=== PATIENT | female | born 1950 | race Caucasian/White ===

== ENCOUNTER 2021-12-26 17:04 | Inpatient (IN) ==
[2021-12-26] MEDS ORDERED: 0.9 % Sodium Chloride 1,000 ML IVC ONE (18:13)
[2021-12-26 18:30] LABS: Basophils % 0.1 %; Eosinophils % 0.4 %; Hemoglobin 10.6 g/dL (11.5-15.4); Immature Granulocytes % 0.5 % (0-4); Lymphocytes # 0.9 K/mcL (0.6-4.6); Lymphocytes % 11.4 %; Mean Corpuscular HGB Conc 31.2 g/dL (31.6-35.5); Mean Corpuscular Hemoglobin 30.2 pg (28.0-33.3); Mean Corpuscular Volume 96.9 fL (83.0-100.0); Mean Platelet Volume 10.6 fL (9.4-12.4); Monocytes # 0.7 K/mcL (0.0-1.3); Monocytes % 8.9 %; Platelet Count 119 K/mcL (140-400); Red Blood Count 3.51 M/mcL (3.82-4.97); Red Cell Distribution Width 13.9 % (11.5-14.5); Segmented Neutrophils % 78.7 %
[2021-12-26 18:31] LABS: White Blood Count 7.6 K/mcL (4.3-11.1)
[2021-12-26 18:47] LABS: Bilirubin,Urine Negative (Negative); Blood,Urine Negative (Negative); Clarity,Urine Clear (Clear); Color,Urine Light-Yellow (Yellow); Glucose,Urine (UA) Normal (Normal); Ketones,Urine Negative (Negative); Leukocyte Esterase,Urine Moderate (Negative); Mucus,Urine Few per lpf (None-Few); Nitrite,Urine Negative (Negative); Protein,Urine 50 mg/dL (Neg-Trace); Specific Gravity,Urine 1.017 (1.010-1.025); Squamous Epithelial Cell,Urine Few per hpf (None-Few); Urobilinogen,Urine Normal (Normal)
[2021-12-26 18:50] LABS: Albumin 3.9 g/dL (3.5-5.7); Bilirubin,Total 1.3 mg/dL (0.3-1.0); Calcium 9.5 mg/dL (8.6-10.3); Globulin 3.9 g/dL (2.4-3.5); Magnesium 1.7 mg/dL (1.6-2.6); Phosphorous 3.1 mg/dL (2.7-4.5); Potassium 4.6 mEq/L (3.5-5.1); Total Protein 7.8 g/dL (6.4-8.9); Troponin I 0.03 ng/mL (< 0.04)
[2021-12-26 19:03] LABS: Thyroid Stimulating Hormone 1.241 mcIU/mL (0.340-5.600)
[2021-12-26] MEDS ORDERED: Furosemide 40 MG/4 ML VIAL IVP ONE (19:10)
[2021-12-26] MEDS ORDERED: Naloxone 0.4 MG/ML INJ IVP PRN (20:13)
[2021-12-26] MEDS ORDERED: Dextrose Gel 15 GM/37.5 ML TUBE PO PRN ×2 (20:16)
[2021-12-26] MEDS ORDERED: *HR* Dextrose 50 % in Water (Syg) 50 ML SYRINGE IVP PRN (20:16)
[2021-12-26] MEDS ORDERED: D5% in Water 1,000 ML IVC PRN (20:16)
[2021-12-26] MEDS ORDERED: Perflutren Lipid Microsphere 1.3 ML in 0.9 % Sodium Chloride 8.7 ML IVP PRN (20:21)
[2021-12-26 21:18] LABS: Influenza A PCR Negative (Negative); Influenza B PCR Negative (Negative); Resp. Syncytial Virus PCR Negative (Negative)
[2021-12-26 21:20] LABS: SARS-CoV-2 by PCR (In House) Negative (Negative)
[2021-12-26] MEDS: carvediloL 6.25 MG TABLET PO SCH (21:23)
[2021-12-26] MEDS: Insulin LISPRO 300 UNITS/3 ML VIAL SUBQ SCH (21:39)
[2021-12-26] MEDS: Melatonin 3 MG TABLET PO PRN (21:46)
[2021-12-27 05:17] LABS: Basophils % 0.2 %; Mean Platelet Volume 10.7 fL (9.4-12.4); Red Cell Distribution Width 13.8 % (11.5-14.5)
[2021-12-27 05:19] LABS: Eosinophils % 0.4 %; Hematocrit 29.3 % (35.3-44.9); Hemoglobin 9.2 g/dL (11.5-15.4); Immature Granulocytes % 0.9 % (0-4); Immature Platelets 3.4 % (1.1-6.1); Lymphocytes # 0.8 K/mcL (0.6-4.6); Lymphocytes % 14.8 %; Mean Corpuscular HGB Conc 31.4 g/dL (31.6-35.5); Mean Corpuscular Hemoglobin 30.3 pg (28.0-33.3); Mean Corpuscular Volume 96.4 fL (83.0-100.0); Monocytes # 0.5 K/mcL (0.0-1.3); Monocytes % 9.5 %; Neutrophils # 4.1 K/mcL (1.6-8.9); Platelet Count 91 K/mcL (140-400); Red Blood Count 3.04 M/mcL (3.82-4.97); Segmented Neutrophils % 74.2 %; White Blood Count 5.5 K/mcL (4.3-11.1)
[2021-12-27 05:35] LABS: Albumin 3.1 g/dL (3.5-5.7); Calcium 8.8 mg/dL (8.6-10.3); Globulin 3.1 g/dL (2.4-3.5); Magnesium 1.7 mg/dL (1.6-2.6); Phosphorous 4.1 mg/dL (2.7-4.5); Potassium 4.5 mEq/L (3.5-5.1); Total Protein 6.2 g/dL (6.4-8.9)
[2021-12-27] MEDS ORDERED: Fluticasone Propionate Nasal 50 MCG/SPRAY BOTTLE NS PRN (08:11)
[2021-12-27] MEDS ORDERED: Furosemide 40 MG/4 ML VIAL IVP SCH (09:00)
[2021-12-27] MEDS: Insulin LISPRO 300 UNITS/3 ML VIAL SUBQ SCH ×6 (09:21→21:44)
[2021-12-27] MEDS: Albumin 25% 25gram/100mL 25 GM/100 ML IV.SOLN IVPB SCH ×3 (09:22→23:38)
[2021-12-27] MEDS: Famotidine 20 MG TABLET PO SCH ×2 (09:22→21:44)
[2021-12-27] MEDS: Aspirin Enteric Coated 81 MG Tablet PO SCH (09:22)
[2021-12-27] MEDS: carvediloL 6.25 MG TABLET PO SCH (09:33)
[2021-12-27] MEDS: Budesonide/Formoterol 80/4.5 1 PUFF INH IH SCH ×2 (10:20→20:50)
[2021-12-27] MEDS ORDERED: Ipratropium/Albuterol Neb 3 ML ONE (13:39)
[2021-12-27] MEDS: Ipratropium/Albuterol Neb 3 ML IH SCH ×2 (13:50→20:50)
[2021-12-27] MEDS ORDERED: Furosemide 20 MG/2 ML VIAL IVP ONE (15:04)
[2021-12-27 16:19] LABS: ABG Base Excess 3 mEq/L (-2 to 3); ABG HCO3 28 mEq/L (21-27); ABG Oxygen Saturation 97 % (95-98); ABG PCO2 45 mmHg (35-45); ABG PO2 97 mmHg (85-104); ABG TCO2 29 mEq/L (20-26)
[2021-12-27] MEDS: *HR* Heparin 5,000 UNIT/ML VIAL SQ SCH (16:47)
[2021-12-27] MEDS: Insulin DETEMIR 100 UNIT/ML X5UNITS SUBQ SCH (21:44)
[2021-12-27] MEDS ORDERED: Acetaminophen 325 MG TABLET PO ONE (23:37)
[2021-12-27] MEDS: Melatonin 3 MG TABLET PO PRN (23:38)
[2021-12-28] MEDS: Ipratropium/Albuterol Neb 3 ML IH SCH ×3 (00:07→07:19)
[2021-12-28] MEDS: *HR* Heparin 5,000 UNIT/ML VIAL SQ SCH ×2 (05:21→16:49)
[2021-12-28 06:42] LABS: Calcium 9.4 mg/dL (8.6-10.3); Magnesium 1.6 mg/dL (1.6-2.6); Phosphorous 3.3 mg/dL (2.7-4.5); Potassium 4.2 mEq/L (3.5-5.1)
[2021-12-28] MEDS: Budesonide/Formoterol 80/4.5 1 PUFF INH IH SCH ×2 (07:20→20:06)
[2021-12-28] MEDS ORDERED: Furosemide 40 MG/4 ML VIAL IVP SCH (08:00)
[2021-12-28] MEDS: Insulin LISPRO 300 UNITS/3 ML VIAL SUBQ SCH ×7 (08:09→20:27)
[2021-12-28] MEDS: Aspirin Enteric Coated 81 MG Tablet PO SCH (10:04)
[2021-12-28] MEDS: Famotidine 20 MG TABLET PO SCH ×2 (10:05→21:14)
[2021-12-28] MEDS: Albumin 25% 25gram/100mL 25 GM/100 ML IV.SOLN IVPB SCH ×2 (16:49→23:50)
[2021-12-28] MEDS: Insulin DETEMIR 100 UNIT/ML X5UNITS SUBQ SCH (20:44)
[2021-12-28] MEDS: Torsemide 20 MG TABLET PO SCH (21:13)
[2021-12-28] MEDS: Melatonin 3 MG TABLET PO PRN (21:14)
[2021-12-29] MEDS ORDERED: Furosemide 20 MG/2 ML VIAL IVP ONE (02:34)
[2021-12-29 03:28] LABS: Basophils % 0.1 %; Eosinophils # 0.1 K/mcL (0.0-0.6); Eosinophils % 1.6 %; Hematocrit 26.6 % (35.3-44.9); Hemoglobin 8.5 g/dL (11.5-15.4); Immature Granulocytes % 0.4 % (0-4); Lymphocytes # 0.9 K/mcL (0.6-4.6); Lymphocytes % 12.6 %; Mean Corpuscular Hemoglobin 30.7 pg (28.0-33.3); Mean Platelet Volume 10.9 fL (9.4-12.4); Monocytes # 0.7 K/mcL (0.0-1.3); Monocytes % 10.3 %; Neutrophils # 5.2 K/mcL (1.6-8.9); Platelet Count 107 K/mcL (140-400); Red Blood Count 2.77 M/mcL (3.82-4.97); Red Cell Distribution Width 13.5 % (11.5-14.5); White Blood Count 6.9 K/mcL (4.3-11.1)
[2021-12-29 03:47] LABS: Calcium 9.7 mg/dL (8.6-10.3); Magnesium 1.7 mg/dL (1.6-2.6); Potassium 4.3 mEq/L (3.5-5.1)
[2021-12-29] MEDS: Ipratropium/Albuterol Neb 3 ML IH PRN ×2 (04:53→08:00)
[2021-12-29] MEDS: *HR* Heparin 5,000 UNIT/ML VIAL SQ SCH ×2 (05:24→17:48)
[2021-12-29] MEDS: Budesonide/Formoterol 80/4.5 1 PUFF INH IH SCH ×2 (08:00→20:14)
[2021-12-29] MEDS: Famotidine 20 MG TABLET PO SCH ×2 (08:16→19:49)
[2021-12-29] MEDS: Aspirin Enteric Coated 81 MG Tablet PO SCH (08:17)
[2021-12-29] MEDS: Albumin 25% 25gram/100mL 25 GM/100 ML IV.SOLN IVPB SCH ×2 (08:19→17:03)
[2021-12-29] MEDS: levoFLOXacin 750 MG/150 ML 750 MG/150 ML BAG IVPB SCH (08:20)
[2021-12-29] MEDS: Insulin LISPRO 300 UNITS/3 ML VIAL SUBQ SCH ×7 (08:20→19:39)
[2021-12-29] MEDS: Torsemide 20 MG TABLET PO SCH ×2 (08:23→19:49)
[2021-12-29] MEDS ORDERED: Chlorothiazide Sodium 500 MG VIAL IVP ONE (11:38)
[2021-12-29 13:37] LABS: Uric Acid 8.8 mg/dL (2.3-7.6)
[2021-12-29] MEDS: Insulin DETEMIR 100 UNIT/ML X5UNITS SUBQ SCH (19:50)
[2021-12-30] MEDS: Albumin 25% 25gram/100mL 25 GM/100 ML IV.SOLN IVPB SCH ×2 (00:19→09:14)
[2021-12-30 04:42] LABS: Sodium, Urine 85.7 mEq/L
[2021-12-30] MEDS: *HR* Heparin 5,000 UNIT/ML VIAL SQ SCH ×2 (05:38→17:26)
[2021-12-30 06:12] LABS: Basophils % 0.2 %; Eosinophils # 0.1 K/mcL (0.0-0.6); Eosinophils % 1.7 %; Hematocrit 26.8 % (35.3-44.9); Hemoglobin 8.4 g/dL (11.5-15.4); Immature Granulocytes % 0.5 % (0-4); Lymphocytes # 0.9 K/mcL (0.6-4.6); Mean Corpuscular HGB Conc 31.3 g/dL (31.6-35.5); Mean Corpuscular Hemoglobin 29.8 pg (28.0-33.3); Monocytes # 0.6 K/mcL (0.0-1.3); Platelet Count 126 K/mcL (140-400); Red Blood Count 2.82 M/mcL (3.82-4.97); Red Cell Distribution Width 13.3 % (11.5-14.5); Segmented Neutrophils % 75.6 %; White Blood Count 6.5 K/mcL (4.3-11.1)
[2021-12-30] MEDS: Budesonide/Formoterol 80/4.5 1 PUFF INH IH SCH ×2 (07:46→20:11)
[2021-12-30] MEDS: Insulin LISPRO 300 UNITS/3 ML VIAL SUBQ SCH ×7 (08:02→21:15)
[2021-12-30 08:38] LABS: Calcium 9.9 mg/dL (8.6-10.3); Magnesium 1.5 mg/dL (1.6-2.6); Phosphorous 2.6 mg/dL (2.7-4.5); Potassium 4.1 mEq/L (3.5-5.1)
[2021-12-30] MEDS: levoFLOXacin 750 MG/150 ML 750 MG/150 ML BAG IVPB SCH (09:12)
[2021-12-30] MEDS: Torsemide 20 MG TABLET PO SCH ×2 (09:13→21:45)
[2021-12-30] MEDS: Famotidine 20 MG TABLET PO SCH ×2 (09:13→21:45)
[2021-12-30] MEDS: Aspirin Enteric Coated 81 MG Tablet PO SCH (09:14)
[2021-12-30] MEDS: Amoxicillin 500 MG CAPSULE PO SCH (15:13)
[2021-12-30] MEDS: Insulin DETEMIR 100 UNIT/ML X5UNITS SUBQ SCH (21:44)
[2021-12-31] MEDS: Amoxicillin 500 MG CAPSULE PO SCH ×2 (00:41→08:12)
[2021-12-31] MEDS: *HR* Heparin 5,000 UNIT/ML VIAL SQ SCH ×2 (05:05→17:34)
[2021-12-31 05:47] LABS: Calcium 9.2 mg/dL (8.6-10.3); Magnesium 1.7 mg/dL (1.6-2.6); Phosphorous 3.4 mg/dL (2.7-4.5); Potassium 3.6 mEq/L (3.5-5.1)
[2021-12-31] MEDS: Insulin LISPRO 300 UNITS/3 ML VIAL SUBQ SCH ×7 (06:58→20:40)
[2021-12-31] MEDS: Budesonide/Formoterol 80/4.5 1 PUFF INH IH SCH ×2 (07:34→20:46)
[2021-12-31] MEDS: Ipratropium/Albuterol Neb 3 ML IH PRN ×2 (07:35→20:45)
[2021-12-31] MEDS: Aspirin Enteric Coated 81 MG Tablet PO SCH (08:12)
[2021-12-31] MEDS: Famotidine 20 MG TABLET PO SCH ×2 (08:12→20:39)
[2021-12-31] MEDS: levoFLOXacin 750 MG/150 ML 750 MG/150 ML BAG IVPB SCH (08:15)
[2022-01-01] MEDS: Insulin DETEMIR 100 UNIT/ML X5UNITS SUBQ SCH ×2 (04:27→20:16)
[2022-01-01] MEDS: *HR* Heparin 5,000 UNIT/ML VIAL SQ SCH ×2 (05:14→17:34)
[2022-01-01 06:59] LABS: Basophils % 0.2 %; Eosinophils # 0.2 K/mcL (0.0-0.6); Eosinophils % 4.6 %; Hematocrit 26.7 % (35.3-44.9); Hemoglobin 8.5 g/dL (11.5-15.4); Immature Granulocytes % 0.4 % (0-4); Lymphocytes # 0.7 K/mcL (0.6-4.6); Lymphocytes % 13.8 %; Mean Corpuscular HGB Conc 31.8 g/dL (31.6-35.5); Mean Corpuscular Hemoglobin 29.8 pg (28.0-33.3); Mean Corpuscular Volume 93.7 fL (83.0-100.0); Mean Platelet Volume 10.5 fL (9.4-12.4); Monocytes # 0.4 K/mcL (0.0-1.3); Monocytes % 8.8 %; Neutrophils # 3.5 K/mcL (1.6-8.9); Platelet Count 142 K/mcL (140-400); Red Blood Count 2.85 M/mcL (3.82-4.97); Red Cell Distribution Width 13.4 % (11.5-14.5); Segmented Neutrophils % 72.2 %; White Blood Count 4.8 K/mcL (4.3-11.1)
[2022-01-01 07:20] LABS: Calcium 9.5 mg/dL (8.6-10.3); Magnesium 1.6 mg/dL (1.6-2.6); Phosphorous 3.8 mg/dL (2.7-4.5); Potassium 4.1 mEq/L (3.5-5.1)
[2022-01-01] MEDS: Insulin LISPRO 300 UNITS/3 ML VIAL SUBQ SCH ×7 (08:40→20:16)
[2022-01-01] MEDS: Famotidine 20 MG TABLET PO SCH ×2 (08:41→20:21)
[2022-01-01] MEDS: Aspirin Enteric Coated 81 MG Tablet PO SCH (08:42)
[2022-01-01] MEDS: Budesonide/Formoterol 80/4.5 1 PUFF INH IH SCH ×2 (10:13→20:42)
[2022-01-01] MEDS: Ipratropium/Albuterol Neb 3 ML IH PRN ×2 (10:13→20:42)
[2022-01-01] MEDS: Albumin 25% 25gram/100mL 25 GM/100 ML IV.SOLN IVPB SCH ×2 (14:45→22:46)
[2022-01-02 01:03] LABS: Basophils % 0.2 %; Eosinophils # 0.2 K/mcL (0.0-0.6); Eosinophils % 3.3 %; Hematocrit 24.3 % (35.3-44.9); Hemoglobin 7.7 g/dL (11.5-15.4); Immature Granulocytes % 0.4 % (0-4); Lymphocytes # 0.7 K/mcL (0.6-4.6); Lymphocytes % 13.8 %; Mean Corpuscular HGB Conc 31.7 g/dL (31.6-35.5); Mean Corpuscular Hemoglobin 29.8 pg (28.0-33.3); Mean Corpuscular Volume 94.2 fL (83.0-100.0); Mean Platelet Volume 10.8 fL (9.4-12.4); Monocytes # 0.5 K/mcL (0.0-1.3); Monocytes % 9.8 %; Neutrophils # 3.7 K/mcL (1.6-8.9); Platelet Count 127 K/mcL (140-400); Red Blood Count 2.58 M/mcL (3.82-4.97); Red Cell Distribution Width 13.6 % (11.5-14.5); Segmented Neutrophils % 72.5 %; White Blood Count 5.1 K/mcL (4.3-11.1)
[2022-01-02 01:09] LABS: Estimated Average Glucose 128 mg/dl; Hemoglobin A1C 6.1 %
[2022-01-02 01:23] LABS: Calcium 9.3 mg/dL (8.6-10.3); Potassium 4.1 mEq/L (3.5-5.1)
[2022-01-02] MEDS: *HR* Heparin 5,000 UNIT/ML VIAL SQ SCH ×2 (05:15→17:38)
[2022-01-02] MEDS: Ipratropium/Albuterol Neb 3 ML IH PRN ×2 (07:41→22:09)
[2022-01-02] MEDS: Budesonide/Formoterol 80/4.5 1 PUFF INH IH SCH ×2 (07:41→22:10)
[2022-01-02] MEDS: Albumin 25% 25gram/100mL 25 GM/100 ML IV.SOLN IVPB SCH ×3 (08:08→23:22)
[2022-01-02] MEDS: Famotidine 20 MG TABLET PO SCH ×2 (08:21→20:57)
[2022-01-02] MEDS: Insulin LISPRO 300 UNITS/3 ML VIAL SUBQ SCH ×7 (08:23→20:01)
[2022-01-02] MEDS: Aspirin Enteric Coated 81 MG Tablet PO SCH (08:41)
[2022-01-02] MEDS: Insulin DETEMIR 100 UNIT/ML X5UNITS SUBQ SCH (20:57)
[2022-01-03 03:30] LABS: Calcium 9.3 mg/dL (8.6-10.3); Potassium 4.3 mEq/L (3.5-5.1)
[2022-01-03] MEDS: *HR* Heparin 5,000 UNIT/ML VIAL SQ SCH ×2 (05:46→16:37)
[2022-01-03] MEDS: Budesonide/Formoterol 80/4.5 1 PUFF INH IH SCH ×2 (07:23→21:35)
[2022-01-03] MEDS: Ipratropium/Albuterol Neb 3 ML IH PRN (07:23)
[2022-01-03] MEDS: Albumin 25% 25gram/100mL 25 GM/100 ML IV.SOLN IVPB SCH ×2 (07:37→15:58)
[2022-01-03] MEDS: Aspirin Enteric Coated 81 MG Tablet PO SCH (07:38)
[2022-01-03] MEDS: Insulin LISPRO 300 UNITS/3 ML VIAL SUBQ SCH ×7 (07:38→19:56)
[2022-01-03] MEDS: Famotidine 20 MG TABLET PO SCH (07:39)
[2022-01-03] MEDS ORDERED: Furosemide 40 MG/4 ML VIAL IVP ONE (11:40)
[2022-01-03 12:48] LABS: Hematocrit 26.8 % (35.3-44.9); Hemoglobin 8.4 g/dL (11.5-15.4)
[2022-01-03] MEDS: Ondansetron ODT 4 MG TAB.RAPDIS SL PRN (17:52)
[2022-01-03] MEDS: Insulin DETEMIR 100 UNIT/ML X5UNITS SUBQ SCH (19:57)
[2022-01-04] MEDS: *HR* Heparin 5,000 UNIT/ML VIAL SQ SCH ×2 (06:04→16:53)
[2022-01-04] MEDS: Ipratropium/Albuterol Neb 3 ML IH PRN ×2 (07:40→20:07)
[2022-01-04] MEDS: Budesonide/Formoterol 80/4.5 1 PUFF INH IH SCH ×2 (07:40→20:08)
[2022-01-04] MEDS: Insulin LISPRO 300 UNITS/3 ML VIAL SUBQ SCH ×7 (08:53→20:37)
[2022-01-04] MEDS: Aspirin Enteric Coated 81 MG Tablet PO SCH (08:54)
[2022-01-04] MEDS: Famotidine 20 MG TABLET PO SCH (08:55)
[2022-01-04 09:28] LABS: Basophils % 0.1 %; Eosinophils # 0.1 K/mcL (0.0-0.6); Eosinophils % 1.2 %; Hematocrit 25.9 % (35.3-44.9); Hemoglobin 7.9 g/dL (11.5-15.4); Immature Granulocytes % 0.8 % (0-4); Lymphocytes # 0.8 K/mcL (0.6-4.6); Lymphocytes % 10.9 %; Mean Corpuscular HGB Conc 30.5 g/dL (31.6-35.5); Mean Corpuscular Volume 98.5 fL (83.0-100.0); Mean Platelet Volume 10.8 fL (9.4-12.4); Monocytes # 0.5 K/mcL (0.0-1.3); Monocytes % 6.2 %; Neutrophils # 5.8 K/mcL (1.6-8.9); Platelet Count 127 K/mcL (140-400); Red Blood Count 2.63 M/mcL (3.82-4.97); Red Cell Distribution Width 13.8 % (11.5-14.5); Segmented Neutrophils % 80.8 %; White Blood Count 7.2 K/mcL (4.3-11.1)
[2022-01-04 09:52] LABS: Calcium 9.8 mg/dL (8.6-10.3); Potassium 5.3 mEq/L (3.5-5.1)
[2022-01-04] MEDS ORDERED: Furosemide 40 MG/4 ML VIAL IVP ONE (13:11)
[2022-01-04] MEDS: hydrALAZINE 25 MG TABLET PO SCH (15:44)
[2022-01-04] MEDS: Insulin DETEMIR 100 UNIT/ML X5UNITS SUBQ SCH (20:37)
[2022-01-05] MEDS: hydrALAZINE 25 MG TABLET PO SCH ×4 (00:09→23:43)
[2022-01-05 04:50] LABS: Calcium 9.4 mg/dL (8.6-10.3); Potassium 5.1 mEq/L (3.5-5.1)
[2022-01-05] MEDS: *HR* Heparin 5,000 UNIT/ML VIAL SQ SCH ×2 (06:03→16:48)
[2022-01-05] MEDS: Budesonide/Formoterol 80/4.5 1 PUFF INH IH SCH ×2 (07:43→22:11)
[2022-01-05] MEDS: Ipratropium/Albuterol Neb 3 ML IH PRN ×2 (07:43→22:11)
[2022-01-05] MEDS: Insulin LISPRO 300 UNITS/3 ML VIAL SUBQ SCH ×7 (08:25→21:51)
[2022-01-05] MEDS: Famotidine 20 MG TABLET PO SCH (08:27)
[2022-01-05] MEDS: Aspirin Enteric Coated 81 MG Tablet PO SCH (08:27)
[2022-01-05] MEDS ORDERED: Furosemide 40 MG/4 ML VIAL IVP ONE (10:43)
[2022-01-05] MEDS: Albumin 25% 25gram/100mL 25 GM/100 ML IV.SOLN IVPB SCH ×2 (11:06→18:55)
[2022-01-05] MEDS: Nystatin POWDER 30 GM BOTTLE TP SCH ×2 (15:25→22:29)
[2022-01-05] MEDS ORDERED: Furosemide 40 MG/4 ML VIAL IVP SCH (21:00)
[2022-01-05] MEDS: Insulin DETEMIR 100 UNIT/ML X5UNITS SUBQ SCH (21:50)
[2022-01-05] MEDS: Furosemide 80 MG in 0.9 % Sodium Chloride 50 ML IV SCH (21:52)
[2022-01-06] MEDS: Albumin 25% 25gram/100mL 25 GM/100 ML IV.SOLN IVPB SCH ×3 (03:07→18:00)
[2022-01-06 04:08] LABS: Calcium 9.8 mg/dL (8.6-10.3); Potassium 4.9 mEq/L (3.5-5.1)
[2022-01-06] MEDS: *HR* Heparin 5,000 UNIT/ML VIAL SQ SCH ×3 (05:05→23:56)
[2022-01-06] MEDS: Budesonide/Formoterol 80/4.5 1 PUFF INH IH SCH ×2 (07:31→21:05)
[2022-01-06] MEDS: Ipratropium/Albuterol Neb 3 ML IH PRN ×2 (07:31→21:02)
[2022-01-06] MEDS: Insulin LISPRO 300 UNITS/3 ML VIAL SUBQ SCH ×7 (09:39→20:44)
[2022-01-06] MEDS: Famotidine 20 MG TABLET PO SCH (09:41)
[2022-01-06] MEDS: Aspirin Enteric Coated 81 MG Tablet PO SCH (09:42)
[2022-01-06] MEDS: hydrALAZINE 25 MG TABLET PO SCH ×3 (09:48→22:58)
[2022-01-06] MEDS: Nystatin POWDER 30 GM BOTTLE TP SCH ×3 (09:49→20:44)
[2022-01-06] MEDS: Furosemide 80 MG in 0.9 % Sodium Chloride 50 ML IV SCH ×2 (10:28→20:45)
[2022-01-06 10:33] LABS: Hematocrit 22.5 % (35.3-44.9)
[2022-01-06] MEDS: Insulin DETEMIR 100 UNIT/ML X5UNITS SUBQ SCH (20:44)
[2022-01-07] MEDS: Albumin 25% 25gram/100mL 25 GM/100 ML IV.SOLN IVPB SCH (02:25)
[2022-01-07 05:20] LABS: Potassium 4.8 mEq/L (3.5-5.1)
[2022-01-07] MEDS: Ipratropium/Albuterol Neb 3 ML IH PRN ×2 (08:00→21:02)
[2022-01-07] MEDS: Budesonide/Formoterol 80/4.5 1 PUFF INH IH SCH ×2 (08:01→21:02)
[2022-01-07] MEDS ORDERED: metOLazone 5 MG TABLET PO ONE (09:15)
[2022-01-07] MEDS: hydrALAZINE 25 MG TABLET PO SCH ×3 (09:28→23:35)
[2022-01-07] MEDS: Aspirin Enteric Coated 81 MG Tablet PO SCH (09:28)
[2022-01-07] MEDS: Famotidine 20 MG TABLET PO SCH (09:28)
[2022-01-07] MEDS: Insulin LISPRO 300 UNITS/3 ML VIAL SUBQ SCH ×7 (09:29→21:33)
[2022-01-07] MEDS: Nystatin POWDER 30 GM BOTTLE TP SCH ×3 (09:32→21:34)
[2022-01-07] MEDS: Furosemide 80 MG in 0.9 % Sodium Chloride 50 ML IV SCH (10:24)
[2022-01-07] MEDS ORDERED: Iron Sucrose Complex 200 MG in 0.9 % Sodium Chloride 100 ML IVPB ONE (11:53)
[2022-01-07] MEDS: *HR* Heparin 5,000 UNIT/ML VIAL SQ SCH (17:08)
[2022-01-07] MEDS: Ondansetron ODT 4 MG TAB.RAPDIS SL PRN (18:20)
[2022-01-07] MEDS: Furosemide 40 MG/4 ML VIAL IVP SCH (21:31)
[2022-01-07] MEDS: Insulin DETEMIR 100 UNIT/ML X5UNITS SUBQ SCH (21:34)
[2022-01-08 04:44] LABS: Hematocrit 23.2 % (35.3-44.9); Hemoglobin 7.3 g/dL (11.5-15.4)
[2022-01-08 04:54] LABS: Calcium 10.1 mg/dL (8.6-10.3)
[2022-01-08] MEDS: *HR* Heparin 5,000 UNIT/ML VIAL SQ SCH ×2 (05:36→17:20)
[2022-01-08] MEDS: Budesonide/Formoterol 80/4.5 1 PUFF INH IH SCH (07:43)
[2022-01-08] MEDS: Ipratropium/Albuterol Neb 3 ML IH PRN (07:56)
[2022-01-08] MEDS: Insulin LISPRO 300 UNITS/3 ML VIAL SUBQ SCH ×7 (08:39→21:39)
[2022-01-08] MEDS: Metoprolol XL (24 HR) Succ 25 MG TAB.ER.24H PO SCH (08:40)
[2022-01-08] MEDS: Famotidine 20 MG TABLET PO SCH (08:40)
[2022-01-08] MEDS: Furosemide 40 MG/4 ML VIAL IVP SCH (08:40)
[2022-01-08] MEDS: Aspirin Enteric Coated 81 MG Tablet PO SCH (08:40)
[2022-01-08] MEDS: hydrALAZINE 25 MG TABLET PO SCH ×2 (08:40→17:20)
[2022-01-08] MEDS: Nystatin POWDER 30 GM BOTTLE TP SCH ×3 (08:41→21:44)
[2022-01-08] MEDS ORDERED: Chlorothiazide Sodium 500 MG VIAL IVP ONE (11:18)
[2022-01-08 12:53] LABS: Complement C3 95 mg/dL (87-200)
[2022-01-08] MEDS: Furosemide 240 MG in 0.9 % Sodium Chloride 96 ML IVC SCH (13:35)
[2022-01-08] MEDS: Albumin 25% 25gram/100mL 25 GM/100 ML IV.SOLN IVPB SCH (17:20)
[2022-01-08] MEDS: Insulin DETEMIR 100 UNIT/ML X5UNITS SUBQ SCH (21:39)
[2022-01-09] MEDS: hydrALAZINE 25 MG TABLET PO SCH ×3 (00:42→16:34)
[2022-01-09] MEDS: Albumin 25% 25gram/100mL 25 GM/100 ML IV.SOLN IVPB SCH ×3 (00:43→18:18)
[2022-01-09] MEDS: Budesonide/Formoterol 80/4.5 1 PUFF INH IH SCH ×3 (00:45→21:34)
[2022-01-09 02:39] LABS: Hematocrit 22.4 % (35.3-44.9); Hemoglobin 6.9 g/dL (11.5-15.4)
[2022-01-09 02:55] LABS: Calcium 10.2 mg/dL (8.6-10.3); Potassium 5.1 mEq/L (3.5-5.1)
[2022-01-09] MEDS: *HR* Heparin 5,000 UNIT/ML VIAL SQ SCH ×2 (05:40→16:34)
[2022-01-09] MEDS: Famotidine 20 MG TABLET PO SCH (08:11)
[2022-01-09] MEDS: Aspirin Enteric Coated 81 MG Tablet PO SCH (08:11)
[2022-01-09] MEDS: Metoprolol XL (24 HR) Succ 25 MG TAB.ER.24H PO SCH (08:12)
[2022-01-09] MEDS: Insulin LISPRO 300 UNITS/3 ML VIAL SUBQ SCH ×7 (08:14→20:16)
[2022-01-09] MEDS: Nystatin POWDER 30 GM BOTTLE TP SCH ×3 (08:15→21:02)
[2022-01-09] MEDS: Furosemide 240 MG in 0.9 % Sodium Chloride 96 ML IVC SCH (12:05)
[2022-01-09 13:08] LABS: Hepatitis B Surface Antibody < 3.10 mIU/mL
[2022-01-09 13:18] LABS: Hepatitis B Surface Antigen Nonreactive (Nonreactive)
[2022-01-09 13:34] LABS: Total Volume 24 Hour,Urine 0.9 Liters (0.60-1.60)
[2022-01-09 13:48] LABS: Sodium, Urine 51.6 mEq/L
[2022-01-09] MEDS ORDERED: 0.9 % Sodium Chloride 250 ML ONE (14:28)
[2022-01-09] MEDS: Ondansetron ODT 4 MG TAB.RAPDIS SL PRN (15:10)
[2022-01-09] MEDS: Insulin DETEMIR 100 UNIT/ML X5UNITS SUBQ SCH (20:56)
[2022-01-09 21:46] LABS: Hemoglobin 7.7 g/dL (11.5-15.4)
[2022-01-10] MEDS: hydrALAZINE 25 MG TABLET PO SCH ×3 (00:11→16:37)
[2022-01-10] MEDS: Albumin 25% 25gram/100mL 25 GM/100 ML IV.SOLN IVPB SCH ×3 (00:12→16:37)
[2022-01-10] MEDS: *HR* Heparin 5,000 UNIT/ML VIAL SQ SCH ×2 (05:56→17:36)
[2022-01-10] MEDS: Budesonide/Formoterol 80/4.5 1 PUFF INH IH SCH ×2 (07:05→22:54)
[2022-01-10] MEDS ORDERED: 0.9 % Sodium Chloride 2,000 ML PRIME SCH (08:15)
[2022-01-10] MEDS ORDERED: 0.9 % Sodium Chloride 250 ML IVC PRN (08:15)
[2022-01-10] MEDS ORDERED: *HR* Heparin 10,000 UNIT/10 ML VIAL IV PRN (08:15)
[2022-01-10] MEDS: Insulin LISPRO 300 UNITS/3 ML VIAL SUBQ SCH ×7 (09:10→21:44)
[2022-01-10] MEDS: Aspirin Enteric Coated 81 MG Tablet PO SCH (09:26)
[2022-01-10] MEDS: Famotidine 20 MG TABLET PO SCH (09:27)
[2022-01-10] MEDS: Metoprolol XL (24 HR) Succ 25 MG TAB.ER.24H PO SCH (09:27)
[2022-01-10] MEDS ORDERED: Acetaminophen IV 500 MG/50 ML BAG IVPB ONE (09:32)
[2022-01-10] MEDS: Nystatin POWDER 30 GM BOTTLE TP SCH ×3 (09:52→21:50)
[2022-01-10] MEDS: Ondansetron 4 MG/2 ML VIAL IVP PRN ×2 (10:46→17:01)
[2022-01-10 11:40] LABS: Hemoglobin 7.8 g/dL (11.5-15.4); Red Cell Distribution Width 15.6 % (11.5-14.5)
[2022-01-10 11:41] LABS: Hematocrit 25.3 % (35.3-44.9); Immature Platelets 8.4 % (1.1-6.1); Mean Corpuscular HGB Conc 30.8 g/dL (31.6-35.5); Mean Corpuscular Hemoglobin 29.8 pg (28.0-33.3); Mean Corpuscular Volume 96.6 fL (83.0-100.0); Mean Platelet Volume 11.7 fL (9.4-12.4); Red Blood Count 2.62 M/mcL (3.82-4.97); White Blood Count 7.2 K/mcL (4.3-11.1)
[2022-01-10 11:56] LABS: Calcium 10.5 mg/dL (8.6-10.3)
[2022-01-10] MEDS ORDERED: Heparin 1,000 UNITS/500 mL 500 ML ONE (12:01)
[2022-01-10] MEDS ORDERED: *HR* Heparin 5,000 UNIT/ML VIAL ONE (12:27)
[2022-01-10] MEDS: Furosemide 240 MG in 0.9 % Sodium Chloride 96 ML IVC SCH (13:42)
[2022-01-10] MEDS ORDERED: Prochlorperazine 10 MG/2 ML VIAL IVP ONE (19:46)
[2022-01-10] MEDS: Insulin DETEMIR 100 UNIT/ML X5UNITS SUBQ SCH (21:43)
[2022-01-11] MEDS: hydrALAZINE 25 MG TABLET PO SCH ×3 (00:58→15:45)
[2022-01-11] MEDS: Albumin 25% 25gram/100mL 25 GM/100 ML IV.SOLN IVPB SCH ×3 (00:58→15:46)
[2022-01-11] MEDS: Ondansetron 4 MG/2 ML VIAL IVP PRN ×2 (01:28→08:41)
[2022-01-11] MEDS: *HR* Heparin 5,000 UNIT/ML VIAL SQ SCH (05:51)
[2022-01-11 07:36] LABS: Calcium 8.8 mg/dL (8.6-10.3); Potassium 4.7 mEq/L (3.5-5.1)
[2022-01-11] MEDS: Budesonide/Formoterol 80/4.5 1 PUFF INH IH SCH ×2 (07:50→20:16)
[2022-01-11] MEDS: Insulin LISPRO 300 UNITS/3 ML VIAL SUBQ SCH ×7 (08:13→20:35)
[2022-01-11] MEDS: Aspirin Enteric Coated 81 MG Tablet PO SCH (08:14)
[2022-01-11] MEDS: Metoprolol XL (24 HR) Succ 25 MG TAB.ER.24H PO SCH (08:15)
[2022-01-11] MEDS: Nystatin POWDER 30 GM BOTTLE TP SCH ×3 (08:15→20:39)
[2022-01-11] MEDS: Famotidine 20 MG TABLET PO SCH (08:15)
[2022-01-11 10:19] LABS: ANA IgG by ELISA DETECTED (None Detected)
[2022-01-11] MEDS: Furosemide 240 MG in 0.9 % Sodium Chloride 96 ML IVC SCH (10:20)
[2022-01-11 10:58] LABS: Basophils % 0.3 %; Eosinophils % 0.3 %; Hematocrit 24.2 % (35.3-44.9); Hemoglobin 7.4 g/dL (11.5-15.4); Immature Granulocytes % 0.7 % (0-4); Lymphocytes # 0.5 K/mcL (0.6-4.6); Lymphocytes % 6.9 %; Mean Corpuscular HGB Conc 30.6 g/dL (31.6-35.5); Mean Corpuscular Hemoglobin 29.4 pg (28.0-33.3); Mean Platelet Volume 12.2 fL (9.4-12.4); Monocytes # 0.4 K/mcL (0.0-1.3); Monocytes % 5.9 %; Platelet Count 110 K/mcL (140-400); Red Blood Count 2.52 M/mcL (3.82-4.97); Red Cell Distribution Width 15.1 % (11.5-14.5); Segmented Neutrophils % 85.9 %
[2022-01-11 11:35] LABS: Adenovirus Not Detected (Not Detect); Bordetella Pertussis Not Detected (Not Detect); Chlamydophila pneumoniae Not Detected (Not Detect); Coronavirus 229E Not Detected (Not Detect); Coronavirus HKU1 Not Detected (Not Detect); Coronavirus NL63 Not Detected (Not Detect); Coronavirus OC43 Not Detected (Not Detect); Human Metapneumovirus Not Detected (Not Detect); Human Rhinovirus/Enterovirus Not Detected (Not Detect); Influenza A Subtype 2009 H1 Not Detected (Not Detect); Influenza B Not Detected (Not Detect); Mycoplasma pneumoniae Not Detected (Not Detect); Parainfluenza Virus 1 Not Detected (Not Detect); Parainfluenza Virus 2 Not Detected (Not Detect); Parainfluenza Virus 3 Not Detected (Not Detect); Parainfluenza Virus 4 Not Detected (Not Detect); Respiratory Syncytial Virus Not Detected (Not Detect); SARS-CoV-2 Not Detected (Not Detect)
[2022-01-11] MEDS: Ergocalciferol (VIT D2) 50,000 UNIT (1.25MG) CAP PO SCH (11:52)
[2022-01-11] MEDS: Furosemide 40 MG/4 ML VIAL IVP SCH ×2 (12:46→20:39)
[2022-01-11 14:01] LABS: Hepatitis B Surface Antigen Nonreactive (Nonreactive)
[2022-01-11] MEDS ORDERED: 0.9 % Sodium Chloride 250 ML IVC PRN (14:16)
[2022-01-11] MEDS ORDERED: *HR* Heparin 10,000 UNIT/10 ML VIAL IV PRN (14:26)
[2022-01-11 14:30] LABS: Hepatitis B Core IgM Nonreactive (Nonreactive)
[2022-01-11] MEDS ORDERED: DilTIAZem 50 MG/50 ML IV.SOLN IVC SCH (14:30)
[2022-01-11 14:31] LABS: Hepatitis C Virus Antibody Nonreactive (Nonreactive)
[2022-01-11 14:32] LABS: Hepatitis A Antibody IgM Nonreactive (Nonreactive)
[2022-01-11 16:44] LABS: ANCA IFA Titer <1:20 (<1:20)
[2022-01-11] MEDS: Insulin DETEMIR 100 UNIT/ML X5UNITS SUBQ SCH (20:39)
[2022-01-11 23:09] LABS: Alpha 2 Globulin (PEP) 0.62 g/dL (0.48-1.05); Beta Globulin (PEP) 0.73 g/dL (0.48-1.10)
[2022-01-12] MEDS: hydrALAZINE 25 MG TABLET PO SCH ×3 (00:20→17:54)
[2022-01-12] MEDS: Albumin 25% 25gram/100mL 25 GM/100 ML IV.SOLN IVPB SCH ×3 (00:28→20:50)
[2022-01-12 02:55] LABS: Hemoglobin 6.7 g/dL (11.5-15.4); Segmented Neutrophils % 84.1 %
[2022-01-12 02:57] LABS: Basophils % 0.1 %; Eosinophils % 0.1 %; Hematocrit 21.5 % (35.3-44.9); Immature Granulocytes % 0.6 % (0-4); Immature Platelets 8.9 % (1.1-6.1); Lymphocytes # 0.5 K/mcL (0.6-4.6); Mean Corpuscular HGB Conc 31.2 g/dL (31.6-35.5); Mean Corpuscular Hemoglobin 30.3 pg (28.0-33.3); Mean Corpuscular Volume 97.3 fL (83.0-100.0); Mean Platelet Volume 11.9 fL (9.4-12.4); Monocytes # 0.5 K/mcL (0.0-1.3); Monocytes % 7.1 %; Red Blood Count 2.21 M/mcL (3.82-4.97); Red Cell Distribution Width 15.3 % (11.5-14.5); White Blood Count 6.7 K/mcL (4.3-11.1)
[2022-01-12 03:09] LABS: Calcium 9.8 mg/dL (8.6-10.3); Potassium 4.6 mEq/L (3.5-5.1)
[2022-01-12 03:47] LABS: Neutrophils # 5.6 K/mcL (1.6-8.9); Platelet Count 92 K/mcL (140-400); Platelet Estimate Decreased (Normal)
[2022-01-12 03:48] LABS: Anisocytosis 1+ (Not Present)
[2022-01-12] MEDS: Budesonide/Formoterol 80/4.5 1 PUFF INH IH SCH ×2 (07:26→20:20)
[2022-01-12] MEDS ORDERED: 0.9 % Sodium Chloride 250 ML IVC PRN (07:57)
[2022-01-12] MEDS ORDERED: *HR* Heparin 10,000 UNIT/10 ML VIAL IV PRN (07:57)
[2022-01-12] MEDS: Metoprolol XL (24 HR) Succ 25 MG TAB.ER.24H PO SCH (09:05)
[2022-01-12] MEDS: Famotidine 20 MG TABLET PO SCH (09:05)
[2022-01-12] MEDS: Aspirin Enteric Coated 81 MG Tablet PO SCH (09:05)
[2022-01-12] MEDS: Nystatin POWDER 30 GM BOTTLE TP SCH ×3 (09:06→20:50)
[2022-01-12] MEDS: Insulin LISPRO 300 UNITS/3 ML VIAL SUBQ SCH ×7 (09:09→20:49)
[2022-01-12 09:41] LABS: ANCA IFA Pattern NONE DETECTED (None Detected); IFE Reflexed NOT DONE; Serine Protease-3 Antibody 2 AU/mL (0-19)
[2022-01-12] MEDS ORDERED: 0.9 % Sodium Chloride 250 ML IVC SCH (10:30)
[2022-01-12] MEDS: Furosemide 40 MG/4 ML VIAL IVP SCH ×2 (11:16→20:48)
[2022-01-12 18:19] LABS: Hematocrit 27.4 % (35.3-44.9); Hemoglobin 8.7 g/dL (11.5-15.4)
[2022-01-12] MEDS ORDERED: *HR* Metoprolol 5 MG/5 ML VIAL IVP ONE (22:25)
[2022-01-13] MEDS: hydrALAZINE 25 MG TABLET PO SCH ×2 (00:28→07:53)
[2022-01-13] MEDS ORDERED: ALPRAZolam 0.25 MG TABLET PO ONE (02:04)
[2022-01-13 02:45] LABS: ANA HEp-2 IgG IFA DETECTED (<1:80); Anti Nuclear Ab Pattern SPECKLED
[2022-01-13 03:29] LABS: Basophils % 0.2 %; Eosinophils % 0.2 %; Hematocrit 26.6 % (35.3-44.9); Hemoglobin 8.2 g/dL (11.5-15.4); Immature Granulocytes % 0.6 % (0-4); Lymphocytes # 0.4 K/mcL (0.6-4.6); Lymphocytes % 4.6 %; Mean Corpuscular HGB Conc 30.8 g/dL (31.6-35.5); Mean Corpuscular Hemoglobin 29.9 pg (28.0-33.3); Mean Corpuscular Volume 97.1 fL (83.0-100.0); Mean Platelet Volume 12.1 fL (9.4-12.4); Monocytes # 0.4 K/mcL (0.0-1.3); Monocytes % 5.2 %; Neutrophils # 7.5 K/mcL (1.6-8.9); Platelet Count 107 K/mcL (140-400); Red Blood Count 2.74 M/mcL (3.82-4.97); Red Cell Distribution Width 15.3 % (11.5-14.5); Segmented Neutrophils % 89.2 %; White Blood Count 8.4 K/mcL (4.3-11.1)
[2022-01-13 03:31] LABS: Calcium 10.2 mg/dL (8.6-10.3); Potassium 4.7 mEq/L (3.5-5.1)
[2022-01-13] MEDS: Albumin 25% 25gram/100mL 25 GM/100 ML IV.SOLN IVPB SCH (05:01)
[2022-01-13] MEDS: Budesonide/Formoterol 80/4.5 1 PUFF INH IH SCH ×2 (07:47→22:35)
[2022-01-13] MEDS: Insulin LISPRO 300 UNITS/3 ML VIAL SUBQ SCH ×8 (07:48→20:32)
[2022-01-13] MEDS: Famotidine 20 MG TABLET PO SCH (07:52)
[2022-01-13] MEDS: Furosemide 40 MG/4 ML VIAL IVP SCH ×2 (07:52→20:39)
[2022-01-13] MEDS: Metoprolol XL (24 HR) Succ 25 MG TAB.ER.24H PO SCH (07:53)
[2022-01-13] MEDS: Aspirin Enteric Coated 81 MG Tablet PO SCH (07:53)
[2022-01-13] MEDS ORDERED: Iopamidol - 370 500 ML MLS IVP ONE (09:50)
[2022-01-13] MEDS ORDERED: *HR* Heparin 10,000 UNIT/10 ML VIAL IV PRN (12:12)
[2022-01-13] MEDS ORDERED: 0.9 % Sodium Chloride 250 ML IVC PRN (12:12)
[2022-01-13] MEDS: Nystatin POWDER 30 GM BOTTLE TP SCH ×3 (12:15→20:43)
[2022-01-13] MEDS: Levalbuterol Neb 0.63 MG/3 ML IH SCH ×2 (15:28→22:34)
[2022-01-13] MEDS: Piperacillin/Tazobactam 3.375 GM in 0.9 % Sodium Chloride Mini Bag 100 ML IVPB SCH (17:00)
[2022-01-14] MEDS: Levalbuterol Neb 0.63 MG/3 ML IH SCH ×4 (03:56→22:31)
[2022-01-14] MEDS: Piperacillin/Tazobactam 3.375 GM in 0.9 % Sodium Chloride Mini Bag 100 ML IVPB SCH ×2 (03:56→16:43)
[2022-01-14 05:18] LABS: Basophils % 0.1 %; Eosinophils # 0.1 K/mcL (0.0-0.6); Eosinophils % 1.3 %; Hematocrit 27.9 % (35.3-44.9); Hemoglobin 8.6 g/dL (11.5-15.4); Immature Granulocytes % 0.5 % (0-4); Lymphocytes # 0.6 K/mcL (0.6-4.6); Lymphocytes % 7.8 %; Mean Corpuscular HGB Conc 30.8 g/dL (31.6-35.5); Mean Corpuscular Hemoglobin 29.8 pg (28.0-33.3); Mean Corpuscular Volume 96.5 fL (83.0-100.0); Mean Platelet Volume 11.8 fL (9.4-12.4); Monocytes # 0.6 K/mcL (0.0-1.3); Monocytes % 7.2 %; Neutrophils # 6.4 K/mcL (1.6-8.9); Platelet Count 108 K/mcL (140-400); Red Blood Count 2.89 M/mcL (3.82-4.97); Red Cell Distribution Width 15.1 % (11.5-14.5); Segmented Neutrophils % 83.1 %; White Blood Count 7.7 K/mcL (4.3-11.1)
[2022-01-14 05:22] LABS: Calcium 10.1 mg/dL (8.6-10.3); Potassium 4.1 mEq/L (3.5-5.1)
[2022-01-14] MEDS ORDERED: *HR* Metoprolol 5 MG/5 ML VIAL IVP ONE (06:26)
[2022-01-14] MEDS ORDERED: 0.9 % Sodium Chloride 250 ML IVC PRN (07:52)
[2022-01-14] MEDS ORDERED: *HR* Heparin 10,000 UNIT/10 ML VIAL IV PRN (07:52)
[2022-01-14] MEDS: Nystatin POWDER 30 GM BOTTLE TP SCH ×3 (08:02→21:39)
[2022-01-14] MEDS: Famotidine 20 MG TABLET PO SCH (08:03)
[2022-01-14] MEDS: Metoprolol XL (24 HR) Succ 25 MG TAB.ER.24H PO SCH (08:03)
[2022-01-14] MEDS: Aspirin Enteric Coated 81 MG Tablet PO SCH (08:04)
[2022-01-14] MEDS: Insulin LISPRO 300 UNITS/3 ML VIAL SUBQ SCH ×6 (08:04→21:34)
[2022-01-14] MEDS: Furosemide 40 MG/4 ML VIAL IVP SCH ×2 (08:04→19:38)
[2022-01-14] MEDS: Budesonide/Formoterol 80/4.5 1 PUFF INH IH SCH ×2 (09:52→22:31)
[2022-01-14] MEDS ORDERED: *HR* Heparin 5,000 UNIT/ML VIAL IVP PRN ×2 (14:30)
[2022-01-14] MEDS ORDERED: Heparin 25,000UNIT/250ML 1/2NS 25,000 UNIT/250 ML IV.SOLN IVC SCH (14:30)
[2022-01-14 15:03] LABS: Heparin anti-factor XA UFH < 0.04 IU/mL (0.30-0.70)
[2022-01-14 15:04] LABS: INR 1.3
[2022-01-14] MEDS: Melatonin 3 MG TABLET PO PRN (21:32)
[2022-01-15] MEDS: Levalbuterol Neb 0.63 MG/3 ML IH SCH ×4 (03:37→21:35)
[2022-01-15] MEDS: Piperacillin/Tazobactam 3.375 GM in 0.9 % Sodium Chloride Mini Bag 100 ML IVPB SCH ×2 (04:12→16:59)
[2022-01-15 04:33] LABS: Hemoglobin 8.2 g/dL (11.5-15.4); Immature Granulocytes % 0.4 % (0-4); Red Blood Count 2.73 M/mcL (3.82-4.97)
[2022-01-15 04:35] LABS: Basophils % 0.3 %; Eosinophils # 0.1 K/mcL (0.0-0.6); Eosinophils % 1.8 %; Hematocrit 26.3 % (35.3-44.9); Immature Platelets 9.1 % (1.1-6.1); Lymphocytes # 0.8 K/mcL (0.6-4.6); Lymphocytes % 11.5 %; Mean Corpuscular HGB Conc 31.2 g/dL (31.6-35.5); Mean Corpuscular Volume 96.3 fL (83.0-100.0); Mean Platelet Volume 12.3 fL (9.4-12.4); Monocytes # 0.5 K/mcL (0.0-1.3); Monocytes % 6.8 %; Neutrophils # 5.8 K/mcL (1.6-8.9); Red Cell Distribution Width 15.1 % (11.5-14.5); Segmented Neutrophils % 79.2 %; White Blood Count 7.3 K/mcL (4.3-11.1)
[2022-01-15 04:37] LABS: Platelet Count 90 K/mcL (140-400)
[2022-01-15 04:42] LABS: Heparin anti-factor XA UFH 0.86 IU/mL (0.30-0.70); INR 1.3
[2022-01-15 04:44] LABS: Calcium 9.3 mg/dL (8.6-10.3); Potassium 4.2 mEq/L (3.5-5.1)
[2022-01-15] MEDS: Budesonide/Formoterol 80/4.5 1 PUFF INH IH SCH ×2 (07:49→21:35)
[2022-01-15] MEDS ORDERED: 0.9 % Sodium Chloride 250 ML IVC PRN (08:52)
[2022-01-15] MEDS ORDERED: *HR* Heparin 10,000 UNIT/10 ML VIAL IV PRN (08:52)
[2022-01-15] MEDS: Nystatin POWDER 30 GM BOTTLE TP SCH ×3 (08:56→21:00)
[2022-01-15] MEDS: Insulin LISPRO 300 UNITS/3 ML VIAL SUBQ SCH ×7 (08:57→22:04)
[2022-01-15] MEDS: Furosemide 40 MG/4 ML VIAL IVP SCH ×2 (08:58→20:27)
[2022-01-15] MEDS: Famotidine 20 MG TABLET PO SCH (08:58)
[2022-01-15] MEDS: Aspirin Enteric Coated 81 MG Tablet PO SCH (08:59)
[2022-01-15] MEDS: Oxymetazoline Nasal SPRAY BOTTLE 15ML NS SCH ×2 (09:21→16:58)
[2022-01-15] MEDS: Metoprolol XL (24 HR) Succ 25 MG TAB.ER.24H PO SCH (14:15)
[2022-01-15] MEDS: DilTIAZem CD (24hr) 120 MG CAP.ER.24H PO SCH (14:15)
[2022-01-15] MEDS: Lactobacillus 1 EACH CAP.SPRINK PO SCH (20:27)
[2022-01-15] MEDS: Melatonin 3 MG TABLET PO PRN (22:07)
[2022-01-15] MEDS: Insulin DETEMIR 100 UNIT/ML X5UNITS SUBQ SCH (22:07)
[2022-01-16] MEDS: Levalbuterol Neb 0.63 MG/3 ML IH SCH ×4 (04:19→21:23)
[2022-01-16 04:45] LABS: Hemoglobin 8.1 g/dL (11.5-15.4); Mean Corpuscular Hemoglobin 30.3 pg (28.0-33.3); Red Blood Count 2.67 M/mcL (3.82-4.97); Red Cell Distribution Width 15.4 % (11.5-14.5)
[2022-01-16] MEDS: Piperacillin/Tazobactam 3.375 GM in 0.9 % Sodium Chloride Mini Bag 100 ML IVPB SCH ×2 (04:46→16:20)
[2022-01-16 04:47] LABS: Basophils % 0.3 %; Eosinophils # 0.2 K/mcL (0.0-0.6); Eosinophils % 2.6 %; Immature Granulocytes % 0.3 % (0-4); Immature Platelets 8.5 % (1.1-6.1); Lymphocytes # 0.7 K/mcL (0.6-4.6); Lymphocytes % 10.9 %; Mean Corpuscular HGB Conc 31.2 g/dL (31.6-35.5); Mean Corpuscular Volume 97.4 fL (83.0-100.0); Mean Platelet Volume 11.8 fL (9.4-12.4); Monocytes % 8.5 %; Segmented Neutrophils % 77.4 %; White Blood Count 6.4 K/mcL (4.3-11.1)
[2022-01-16 04:48] LABS: Monocytes # 0.5 K/mcL (0.0-1.3); Platelet Count 82 K/mcL (140-400)
[2022-01-16 04:55] LABS: INR 1.2; Prothrombin Time 13.7 Seconds (9.4-12.1)
[2022-01-16 05:03] LABS: Calcium 9.5 mg/dL (8.6-10.3); Potassium 4.1 mEq/L (3.5-5.1)
[2022-01-16] MEDS: Budesonide/Formoterol 80/4.5 1 PUFF INH IH SCH ×2 (08:12→21:23)
[2022-01-16] MEDS: Insulin LISPRO 300 UNITS/3 ML VIAL SUBQ SCH ×7 (08:30→20:21)
[2022-01-16] MEDS: Metoprolol XL (24 HR) Succ 25 MG TAB.ER.24H PO SCH (08:31)
[2022-01-16] MEDS: Furosemide 40 MG/4 ML VIAL IVP SCH ×2 (08:31→20:20)
[2022-01-16] MEDS: Lactobacillus 1 EACH CAP.SPRINK PO SCH ×2 (08:31→20:20)
[2022-01-16] MEDS: DilTIAZem CD (24hr) 120 MG CAP.ER.24H PO SCH (08:32)
[2022-01-16] MEDS: Aspirin Enteric Coated 81 MG Tablet PO SCH (08:32)
[2022-01-16] MEDS: Famotidine 20 MG TABLET PO SCH (08:32)
[2022-01-16] MEDS: Nystatin POWDER 30 GM BOTTLE TP SCH ×3 (08:33→20:19)
[2022-01-16] MEDS: Insulin DETEMIR 100 UNIT/ML X5UNITS SUBQ SCH (20:20)
[2022-01-16] MEDS: Melatonin 3 MG TABLET PO PRN (22:27)
[2022-01-17] MEDS: Levalbuterol Neb 0.63 MG/3 ML IH SCH ×4 (03:30→21:47)
[2022-01-17] MEDS: Piperacillin/Tazobactam 3.375 GM in 0.9 % Sodium Chloride Mini Bag 100 ML IVPB SCH ×2 (03:52→16:35)
[2022-01-17 04:38] LABS: Eosinophils % 2.4 %; Immature Granulocytes % 0.3 % (0-4); Monocytes % 9.6 %
[2022-01-17 04:40] LABS: Basophils % 0.2 %; Eosinophils # 0.1 K/mcL (0.0-0.6); Hematocrit 25.8 % (35.3-44.9); Hemoglobin 8.1 g/dL (11.5-15.4); Immature Platelets 9.3 % (1.1-6.1); Lymphocytes # 0.7 K/mcL (0.6-4.6); Lymphocytes % 12.5 %; Mean Corpuscular HGB Conc 31.4 g/dL (31.6-35.5); Mean Corpuscular Hemoglobin 30.5 pg (28.0-33.3); Mean Platelet Volume 11.5 fL (9.4-12.4); Monocytes # 0.6 K/mcL (0.0-1.3); Neutrophils # 4.4 K/mcL (1.6-8.9); Red Blood Count 2.66 M/mcL (3.82-4.97); Red Cell Distribution Width 15.2 % (11.5-14.5); White Blood Count 5.8 K/mcL (4.3-11.1)
[2022-01-17 04:44] LABS: INR 1.2; Prothrombin Time 13.4 Seconds (9.4-12.1)
[2022-01-17 04:47] LABS: Platelet Count 73 K/mcL (140-400)
[2022-01-17 04:56] LABS: Calcium 9.7 mg/dL (8.6-10.3)
[2022-01-17] MEDS: Insulin LISPRO 300 UNITS/3 ML VIAL SUBQ SCH ×8 (07:52→19:44)
[2022-01-17] MEDS ORDERED: Heparin 1,000 UNITS/500 mL 500 ML ONE (08:27)
[2022-01-17] MEDS: Lactobacillus 1 EACH CAP.SPRINK PO SCH ×2 (08:47→19:51)
[2022-01-17] MEDS: DilTIAZem CD (24hr) 120 MG CAP.ER.24H PO SCH (08:47)
[2022-01-17] MEDS: Famotidine 20 MG TABLET PO SCH (08:48)
[2022-01-17] MEDS: Metoprolol XL (24 HR) Succ 25 MG TAB.ER.24H PO SCH (08:48)
[2022-01-17] MEDS ORDERED: 0.9 % Sodium Chloride 250 ML IVC PRN (09:09)
[2022-01-17] MEDS ORDERED: *HR* Heparin 10,000 UNIT/10 ML VIAL IV PRN (09:09)
[2022-01-17] MEDS: Budesonide/Formoterol 80/4.5 1 PUFF INH IH SCH ×2 (09:09→21:47)
[2022-01-17] MEDS: Aspirin Enteric Coated 81 MG Tablet PO SCH (09:11)
[2022-01-17] MEDS ORDERED: *HR* FentaNYL (PF) 100 MCG/2 ML VIAL IVP ONE (09:31)
[2022-01-17] MEDS ORDERED: *HR* Midazolam HCl 2 MG/2 ML VIAL IVP ONE (09:31)
[2022-01-17] MEDS ORDERED: 0.9 % Sodium Chloride 500 ML ONE (09:36)
[2022-01-17] MEDS ORDERED: *HR* Heparin 5,000 UNIT/ML VIAL ONE (10:09)
[2022-01-17] MEDS: Furosemide 40 MG/4 ML VIAL IVP SCH (10:53)
[2022-01-17] MEDS: Nystatin POWDER 30 GM BOTTLE TP SCH ×4 (10:54→21:45)
[2022-01-17] MEDS: Furosemide 40 MG TABLET PO SCH (16:35)
[2022-01-17] MEDS: Insulin DETEMIR 100 UNIT/ML X5UNITS SUBQ SCH (19:51)
[2022-01-17] MEDS ORDERED: Acetaminophen 325 MG TABLET PO ONE (21:55)
[2022-01-17] MEDS: Melatonin 3 MG TABLET PO PRN (23:09)
[2022-01-18 03:09] LABS: Basophils % 0.2 %; Immature Granulocytes % 0.3 % (0-4); Mean Platelet Volume 12.3 fL (9.4-12.4); Red Cell Distribution Width 15.4 % (11.5-14.5)
[2022-01-18 03:11] LABS: Eosinophils # 0.2 K/mcL (0.0-0.6); Hematocrit 26.2 % (35.3-44.9); Hemoglobin 8.1 g/dL (11.5-15.4); INR 1.2; Immature Platelets 10.3 % (1.1-6.1); Lymphocytes # 0.6 K/mcL (0.6-4.6); Lymphocytes % 9.7 %; Mean Corpuscular HGB Conc 30.9 g/dL (31.6-35.5); Mean Corpuscular Hemoglobin 29.8 pg (28.0-33.3); Mean Corpuscular Volume 96.3 fL (83.0-100.0); Monocytes # 0.6 K/mcL (0.0-1.3); Monocytes % 10.1 %; Neutrophils # 4.6 K/mcL (1.6-8.9); Prothrombin Time 13.4 Seconds (9.4-12.1); Red Blood Count 2.72 M/mcL (3.82-4.97); Segmented Neutrophils % 76.7 %
[2022-01-18 03:17] LABS: Calcium 9.5 mg/dL (8.6-10.3); Platelet Count 80 K/mcL (140-400); Potassium 3.6 mEq/L (3.5-5.1)
[2022-01-18] MEDS: Piperacillin/Tazobactam 3.375 GM in 0.9 % Sodium Chloride Mini Bag 100 ML IVPB SCH ×2 (05:06→15:39)
[2022-01-18] MEDS: Levalbuterol Neb 0.63 MG/3 ML IH SCH ×4 (05:58→22:49)
[2022-01-18] MEDS: Famotidine 20 MG TABLET PO SCH (07:23)
[2022-01-18] MEDS: Lactobacillus 1 EACH CAP.SPRINK PO SCH ×2 (07:23→19:26)
[2022-01-18] MEDS: DilTIAZem CD (24hr) 120 MG CAP.ER.24H PO SCH (07:23)
[2022-01-18] MEDS: Furosemide 40 MG TABLET PO SCH ×2 (07:23→17:21)
[2022-01-18] MEDS: Metoprolol XL (24 HR) Succ 25 MG TAB.ER.24H PO SCH (07:23)
[2022-01-18] MEDS: Aspirin Enteric Coated 81 MG Tablet PO SCH (07:23)
[2022-01-18] MEDS: Insulin LISPRO 300 UNITS/3 ML VIAL SUBQ SCH ×7 (07:24→21:13)
[2022-01-18] MEDS: Nystatin POWDER 30 GM BOTTLE TP SCH ×3 (07:25→19:27)
[2022-01-18] MEDS: Budesonide/Formoterol 80/4.5 1 PUFF INH IH SCH ×2 (08:13→22:49)
[2022-01-18] MEDS: Ondansetron 4 MG/2 ML VIAL IVP PRN ×2 (08:44→19:31)
[2022-01-18] MEDS: Ergocalciferol (VIT D2) 50,000 UNIT (1.25MG) CAP PO SCH (12:53)
[2022-01-18] MEDS: Insulin DETEMIR 100 UNIT/ML X5UNITS SUBQ SCH (19:26)
[2022-01-18] MEDS: Melatonin 3 MG TABLET PO PRN (21:53)
[2022-01-19 02:47] LABS: Basophils % 0.2 %; Red Cell Distribution Width 15.5 % (11.5-14.5)
[2022-01-19 02:49] LABS: Eosinophils # 0.2 K/mcL (0.0-0.6); Eosinophils % 2.4 %; Hematocrit 25.6 % (35.3-44.9); Immature Granulocytes % 0.2 % (0-4); Immature Platelets 8.8 % (1.1-6.1); Lymphocytes # 0.9 K/mcL (0.6-4.6); Lymphocytes % 13.7 %; Mean Corpuscular HGB Conc 31.3 g/dL (31.6-35.5); Mean Corpuscular Hemoglobin 30.1 pg (28.0-33.3); Mean Corpuscular Volume 96.2 fL (83.0-100.0); Monocytes # 0.6 K/mcL (0.0-1.3); Monocytes % 9.2 %; Neutrophils # 4.6 K/mcL (1.6-8.9); Red Blood Count 2.66 M/mcL (3.82-4.97); Segmented Neutrophils % 74.3 %; White Blood Count 6.2 K/mcL (4.3-11.1)
[2022-01-19 02:55] LABS: INR 1.2; Prothrombin Time 13.4 Seconds (9.4-12.1)
[2022-01-19 02:59] LABS: Platelet Count 77 K/mcL (140-400)
[2022-01-19] MEDS: Levalbuterol Neb 0.63 MG/3 ML IH SCH ×4 (03:01→22:27)
[2022-01-19 03:04] LABS: Calcium 9.6 mg/dL (8.6-10.3); Potassium 3.7 mEq/L (3.5-5.1)
[2022-01-19] MEDS: Piperacillin/Tazobactam 3.375 GM in 0.9 % Sodium Chloride Mini Bag 100 ML IVPB SCH ×2 (03:40→15:13)
[2022-01-19] MEDS ORDERED: 0.9 % Sodium Chloride 250 ML IVC PRN (08:50)
[2022-01-19] MEDS ORDERED: *HR* Heparin 10,000 UNIT/10 ML VIAL IV PRN (08:50)
[2022-01-19] MEDS: Budesonide/Formoterol 80/4.5 1 PUFF INH IH SCH ×2 (10:12→22:26)
[2022-01-19] MEDS: Nystatin POWDER 30 GM BOTTLE TP SCH ×3 (10:13→21:37)
[2022-01-19] MEDS: Insulin LISPRO 300 UNITS/3 ML VIAL SUBQ SCH ×7 (10:30→21:35)
[2022-01-19] MEDS: Metoprolol XL (24 HR) Succ 25 MG TAB.ER.24H PO SCH (15:04)
[2022-01-19] MEDS: Lactobacillus 1 EACH CAP.SPRINK PO SCH ×2 (15:04→21:34)
[2022-01-19] MEDS: Aspirin Enteric Coated 81 MG Tablet PO SCH (15:04)
[2022-01-19] MEDS: DilTIAZem CD (24hr) 120 MG CAP.ER.24H PO SCH (15:04)
[2022-01-19] MEDS: Famotidine 20 MG TABLET PO SCH (15:04)
[2022-01-19] MEDS: Furosemide 40 MG TABLET PO SCH ×2 (15:05→16:57)
[2022-01-19] MEDS: Insulin DETEMIR 100 UNIT/ML X5UNITS SUBQ SCH (21:35)
[2022-01-19] MEDS: Melatonin 3 MG TABLET PO PRN (21:44)
[2022-01-20 02:11] LABS: Basophils % 0.3 %; Hemoglobin 8.5 g/dL (11.5-15.4); Immature Granulocytes % 0.3 % (0-4); Lymphocytes % 11.1 %
[2022-01-20 02:12] LABS: Eosinophils # 0.2 K/mcL (0.0-0.6); Eosinophils % 2.6 %; Hematocrit 26.8 % (35.3-44.9); Immature Platelets 9.6 % (1.1-6.1); Lymphocytes # 0.7 K/mcL (0.6-4.6); Mean Corpuscular HGB Conc 31.7 g/dL (31.6-35.5); Mean Corpuscular Hemoglobin 30.4 pg (28.0-33.3); Mean Corpuscular Volume 95.7 fL (83.0-100.0); Mean Platelet Volume 11.9 fL (9.4-12.4); Monocytes # 0.7 K/mcL (0.0-1.3); Monocytes % 11.2 %; Neutrophils # 4.9 K/mcL (1.6-8.9); Red Cell Distribution Width 15.5 % (11.5-14.5); Segmented Neutrophils % 74.5 %; White Blood Count 6.6 K/mcL (4.3-11.1)
[2022-01-20 02:24] LABS: Platelet Count 77 K/mcL (140-400)
[2022-01-20 02:25] LABS: Calcium 9.7 mg/dL (8.6-10.3); Potassium 3.7 mEq/L (3.5-5.1)
[2022-01-20] MEDS: Levalbuterol Neb 0.63 MG/3 ML IH SCH ×2 (04:07→11:05)
[2022-01-20] MEDS: Piperacillin/Tazobactam 3.375 GM in 0.9 % Sodium Chloride Mini Bag 100 ML IVPB SCH (04:25)
[2022-01-20] MEDS: Insulin LISPRO 300 UNITS/3 ML VIAL SUBQ SCH ×7 (08:03→20:47)
[2022-01-20] MEDS: Famotidine 20 MG TABLET PO SCH (08:03)
[2022-01-20] MEDS: Lactobacillus 1 EACH CAP.SPRINK PO SCH ×2 (08:04→22:21)
[2022-01-20] MEDS: Nystatin POWDER 30 GM BOTTLE TP SCH ×3 (08:04→22:23)
[2022-01-20] MEDS: Furosemide 40 MG TABLET PO SCH (08:04)
[2022-01-20] MEDS: Aspirin Enteric Coated 81 MG Tablet PO SCH (08:04)
[2022-01-20] MEDS: Metoprolol XL (24 HR) Succ 25 MG TAB.ER.24H PO SCH (08:04)
[2022-01-20] MEDS: DilTIAZem CD (24hr) 120 MG CAP.ER.24H PO SCH (08:04)
[2022-01-20] MEDS: Budesonide/Formoterol 80/4.5 1 PUFF INH IH SCH (11:05)
[2022-01-20] MEDS ORDERED: Levalbuterol Neb 0.63 MG/3 ML IH PRN (14:21)
[2022-01-20] MEDS ORDERED: Budesonide/Formoterol 80/4.5 1 PUFF INH IH PRN (14:23)
[2022-01-20] MEDS: Insulin DETEMIR 100 UNIT/ML X5UNITS SUBQ SCH (22:23)
[2022-01-21 04:30] LABS: Calcium 10.4 mg/dL (8.6-10.3); Potassium 4.6 mEq/L (3.5-5.1)
[2022-01-21] MEDS: Metoprolol XL (24 HR) Succ 25 MG TAB.ER.24H PO SCH (07:32)
[2022-01-21] MEDS: Famotidine 20 MG TABLET PO SCH (07:32)
[2022-01-21] MEDS: Aspirin Enteric Coated 81 MG Tablet PO SCH (07:32)
[2022-01-21] MEDS: Lactobacillus 1 EACH CAP.SPRINK PO SCH ×2 (07:32→20:32)
[2022-01-21] MEDS: DilTIAZem CD (24hr) 120 MG CAP.ER.24H PO SCH (07:32)
[2022-01-21] MEDS: Nystatin POWDER 30 GM BOTTLE TP SCH ×3 (07:32→20:33)
[2022-01-21] MEDS: Insulin LISPRO 300 UNITS/3 ML VIAL SUBQ SCH ×7 (07:33→20:38)
[2022-01-21] MEDS: Ondansetron 4 MG/2 ML VIAL IVP PRN (10:58)
[2022-01-21] MEDS: Diphenoxylate/Atropine 1 TAB TABLET PO PRN (20:32)
[2022-01-21] MEDS: Insulin DETEMIR 100 UNIT/ML X5UNITS SUBQ SCH (20:35)
[2022-01-22 02:44] LABS: Basophils % 0.3 %; Immature Granulocytes % 0.3 % (0-4)
[2022-01-22 02:46] LABS: Eosinophils # 0.2 K/mcL (0.0-0.6); Eosinophils % 3.2 %; Hematocrit 28.2 % (35.3-44.9); Hemoglobin 8.9 g/dL (11.5-15.4); Immature Platelets 10.9 % (1.1-6.1); Lymphocytes # 0.9 K/mcL (0.6-4.6); Lymphocytes % 12.7 %; Mean Corpuscular HGB Conc 31.6 g/dL (31.6-35.5); Mean Corpuscular Volume 94.9 fL (83.0-100.0); Mean Platelet Volume 12.1 fL (9.4-12.4); Monocytes # 0.9 K/mcL (0.0-1.3); Monocytes % 12.7 %; Neutrophils # 5.2 K/mcL (1.6-8.9); Red Blood Count 2.97 M/mcL (3.82-4.97); Red Cell Distribution Width 15.3 % (11.5-14.5); Segmented Neutrophils % 70.8 %; White Blood Count 7.4 K/mcL (4.3-11.1)
[2022-01-22 02:50] LABS: Platelet Count 85 K/mcL (140-400)
[2022-01-22 02:55] LABS: Calcium 10.2 mg/dL (8.6-10.3); Potassium 3.7 mEq/L (3.5-5.1)
[2022-01-22] MEDS ORDERED: *HR* Heparin 10,000 UNIT/10 ML VIAL IV PRN (07:39)
[2022-01-22] MEDS ORDERED: 0.9 % Sodium Chloride 250 ML IVC PRN (07:39)
[2022-01-22] MEDS ORDERED: 0.9 % Sodium Chloride 2,000 ML PRIME SCH (07:45)
[2022-01-22] MEDS: Metoprolol XL (24 HR) Succ 25 MG TAB.ER.24H PO SCH (09:05)
[2022-01-22] MEDS: Aspirin Enteric Coated 81 MG Tablet PO SCH (09:05)
[2022-01-22] MEDS: DilTIAZem CD (24hr) 120 MG CAP.ER.24H PO SCH (09:05)
[2022-01-22] MEDS: Famotidine 20 MG TABLET PO SCH (09:05)
[2022-01-22] MEDS: Lactobacillus 1 EACH CAP.SPRINK PO SCH ×2 (09:05→20:26)
[2022-01-22] MEDS: Insulin LISPRO 300 UNITS/3 ML VIAL SUBQ SCH ×7 (09:06→20:27)
[2022-01-22] MEDS: Nystatin POWDER 30 GM BOTTLE TP SCH ×3 (09:10→21:15)
[2022-01-22] MEDS: Insulin DETEMIR 100 UNIT/ML X5UNITS SUBQ SCH (20:27)
[2022-01-22] MEDS: Diphenoxylate/Atropine 1 TAB TABLET PO PRN (20:47)
[2022-01-23] MEDS: Diphenoxylate/Atropine 1 TAB TABLET PO PRN ×3 (03:06→23:24)
[2022-01-23 06:23] LABS: Calcium 9.7 mg/dL (8.6-10.3); Potassium 3.7 mEq/L (3.5-5.1)
[2022-01-23] MEDS: Aspirin Enteric Coated 81 MG Tablet PO SCH (08:27)
[2022-01-23] MEDS: Lactobacillus 1 EACH CAP.SPRINK PO SCH ×2 (08:27→19:39)
[2022-01-23] MEDS: Metoprolol XL (24 HR) Succ 25 MG TAB.ER.24H PO SCH (08:27)
[2022-01-23] MEDS: DilTIAZem CD (24hr) 120 MG CAP.ER.24H PO SCH (08:27)
[2022-01-23] MEDS: Famotidine 20 MG TABLET PO SCH (08:27)
[2022-01-23] MEDS: Insulin LISPRO 300 UNITS/3 ML VIAL SUBQ SCH ×7 (08:28→21:07)
[2022-01-23] MEDS: Nystatin POWDER 30 GM BOTTLE TP SCH ×3 (08:29→19:39)
[2022-01-23] MEDS: Insulin DETEMIR 100 UNIT/ML X5UNITS SUBQ SCH (19:40)
[2022-01-24] MEDS: Metoprolol XL (24 HR) Succ 25 MG TAB.ER.24H PO SCH (08:10)
[2022-01-24] MEDS: Lactobacillus 1 EACH CAP.SPRINK PO SCH (08:11)
[2022-01-24] MEDS: Aspirin Enteric Coated 81 MG Tablet PO SCH (08:11)
[2022-01-24] MEDS: Famotidine 20 MG TABLET PO SCH (08:11)
[2022-01-24] MEDS: Insulin LISPRO 300 UNITS/3 ML VIAL SUBQ SCH ×6 (08:11→17:07)
[2022-01-24] MEDS: Nystatin POWDER 30 GM BOTTLE TP SCH ×2 (08:13→14:59)
[2022-01-24] MEDS: Ondansetron 4 MG/2 ML VIAL IVP PRN (08:23)
[2022-01-24] MEDS: Diphenoxylate/Atropine 1 TAB TABLET PO PRN (08:23)
[2022-01-24 11:41] VITALS: BP 145/47; PULSE 71; TEMP 97.9; O2SAT 95
== END 2022-01-24 18:36 | disposition home health service (06) | DRG 291 ==
LOC: EMEROOARM 17:04 → 3BNU 17:04 → SUATTDRO 20:20 → 3BNU 21:13 → SUATTDRO 12-28 08:25 → 2ANU 01-11 21:00
PROVIDERS: ADMIT Internal Medicine; ATTEND Internal Medicine
PROC: IRPERMA (2022-01-17 12:00)

== ENCOUNTER 2022-03-21 12:45 | Inpatient (IN) ==
[2022-03-21 14:19] LABS: Basophils % 0.4 %; Eosinophils # 0.2 K/mcL (0.0-0.6); Eosinophils % 2.9 %; Hematocrit 33.6 % (35.3-44.9); Hemoglobin 10.4 g/dL (11.5-15.4); Immature Granulocytes % 0.2 % (0-4); Lymphocytes # 0.7 K/mcL (0.6-4.6); Lymphocytes % 13.2 %; Mean Corpuscular Hemoglobin 29.9 pg (28.0-33.3); Mean Corpuscular Volume 96.6 fL (83.0-100.0); Mean Platelet Volume 10.3 fL (9.4-12.4); Monocytes # 0.5 K/mcL (0.0-1.3); Monocytes % 8.9 %; Neutrophils # 4.1 K/mcL (1.6-8.9); Platelet Count 129 K/mcL (140-400); Red Blood Count 3.48 M/mcL (3.82-4.97); Red Cell Distribution Width 14.7 % (11.5-14.5); Segmented Neutrophils % 74.4 %; White Blood Count 5.5 K/mcL (4.3-11.1)
[2022-03-21 14:26] LABS: INR 1.1
[2022-03-21 14:29] LABS: Activated Partial Thrombo Time 33.2 Seconds (26.0-36.0); Albumin 3.4 g/dL (3.5-5.7); Bilirubin,Direct 0.1 mg/dL (0.0-0.2); Bilirubin,Indirect 0.4 mg/dL (0.0-1.0); Bilirubin,Total 0.5 mg/dL (0.3-1.0); Calcium 9.2 mg/dL (8.6-10.3); Globulin 3.4 g/dL (2.4-3.5); Potassium 4.7 mEq/L (3.5-5.1); Total Protein 6.8 g/dL (6.4-8.9); Troponin I 0.03 ng/mL (< 0.04)
[2022-03-21] MEDS ORDERED: Furosemide 20 MG/2 ML VIAL IVP ONE (15:38)
[2022-03-21] MEDS ORDERED: MOM Conc 10 ML UD.LIQ PO PRN (15:49)
[2022-03-21] MEDS ORDERED: D5% in Water 1,000 ML IVC PRN (15:49)
[2022-03-21] MEDS ORDERED: Mag Hydrox/Al Hydrox/Simeth 30 ML UDC PO PRN (15:49)
[2022-03-21] MEDS ORDERED: Melatonin 3 MG TABLET PO PRN (15:49)
[2022-03-21] MEDS ORDERED: *HR* Dextrose 50 % in Water (Syg) 50 ML SYRINGE IVP PRN (15:49)
[2022-03-21] MEDS ORDERED: Acetaminophen 325 MG TABLET PO PRN (15:49)
[2022-03-21] MEDS ORDERED: Naloxone 0.4 MG/ML INJ IVP PRN (15:49)
[2022-03-21] MEDS ORDERED: Dextrose Gel 15 GM/37.5 ML TUBE PO PRN ×2 (15:49)
[2022-03-21] MEDS ORDERED: Ondansetron ODT 4 MG TAB.RAPDIS SL PRN (16:00)
[2022-03-21] MEDS: Insulin LISPRO 300 UNITS/3 ML VIAL SUBQ SCH ×2 (18:06→22:27)
[2022-03-22 01:53] LABS: Hemoglobin 10.4 g/dL (11.5-15.4); Mean Corpuscular HGB Conc 31.5 g/dL (31.6-35.5); Mean Corpuscular Hemoglobin 29.5 pg (28.0-33.3); Mean Corpuscular Volume 93.8 fL (83.0-100.0); Mean Platelet Volume 9.9 fL (9.4-12.4); Platelet Count 119 K/mcL (140-400); Red Blood Count 3.52 M/mcL (3.82-4.97); Red Cell Distribution Width 14.6 % (11.5-14.5)
[2022-03-22 01:55] LABS: White Blood Count 11.9 K/mcL (4.3-11.1)
[2022-03-22 02:13] LABS: Calcium 9.3 mg/dL (8.6-10.3); Magnesium 1.2 mg/dL (1.6-2.6); Potassium 4.8 mEq/L (3.5-5.1)
[2022-03-22] MEDS ORDERED: Fluticasone Propionate Nasal 50 MCG/SPRAY BOTTLE NS PRN (07:59)
[2022-03-22] MEDS: Insulin LISPRO 300 UNITS/3 ML VIAL SUBQ SCH ×4 (08:04→21:43)
[2022-03-22] MEDS ORDERED: Famotidine 20 MG TABLET PO SCH (09:00)
[2022-03-22] MEDS ORDERED: Furosemide 40 MG TABLET PO SCH (09:15)
[2022-03-22] MEDS: Aspirin Enteric Coated 81 MG Tablet PO SCH (09:17)
[2022-03-22] MEDS: Metoprolol XL (24 HR) Succ 25 MG TAB.ER.24H PO SCH (09:17)
[2022-03-22] MEDS: Loratadine 10 MG TABLET PO SCH (09:18)
[2022-03-22] MEDS: DilTIAZem CD (24hr) 120 MG CAP.ER.24H PO SCH (09:18)
[2022-03-22] MEDS: Budesonide/Formoterol 80/4.5 1 PUFF INH IH SCH ×2 (10:22→19:53)
[2022-03-22] MEDS ORDERED: *HR* Heparin 5,000 UNIT/ML VIAL IVP PRN ×2 (13:40)
[2022-03-22] MEDS ORDERED: *HR* Heparin 5,000 UNIT/ML VIAL IVP ONE (13:40)
[2022-03-22] MEDS ORDERED: *HR* Heparin 5,000 UNIT/ML VIAL SQ SCH (14:00)
[2022-03-22] MEDS: Heparin 25,000UNIT/250ML 1/2NS 25,000 UNIT/250 ML IV.SOLN IVC SCH (14:24)
[2022-03-22 14:42] LABS: Red Cell Distribution Width 14.6 % (11.5-14.5)
[2022-03-22 14:44] LABS: Hemoglobin 11.2 g/dL (11.5-15.4); Immature Platelets 3.7 % (1.1-6.1); Mean Corpuscular HGB Conc 31.1 g/dL (31.6-35.5); Mean Corpuscular Hemoglobin 29.7 pg (28.0-33.3); Mean Corpuscular Volume 95.5 fL (83.0-100.0); Mean Platelet Volume 10.3 fL (9.4-12.4); Red Blood Count 3.77 M/mcL (3.82-4.97); White Blood Count 9.1 K/mcL (4.3-11.1)
[2022-03-22 14:55] LABS: INR 1.1; Prothrombin Time 12.3 Seconds (9.4-12.1)
[2022-03-22 15:02] LABS: Heparin anti-factor XA UFH < 0.04 IU/mL (0.30-0.70)
[2022-03-22] MEDS: Furosemide 40 MG TABLET PO SCH (21:42)
[2022-03-23 05:45] LABS: Basophils % 0.4 %; Eosinophils # 0.2 K/mcL (0.0-0.6); Hematocrit 32.2 % (35.3-44.9); Hemoglobin 10.1 g/dL (11.5-15.4); Immature Granulocytes % 0.4 % (0-4); Lymphocytes # 1.2 K/mcL (0.6-4.6); Lymphocytes % 22.1 %; Mean Corpuscular HGB Conc 31.4 g/dL (31.6-35.5); Mean Corpuscular Hemoglobin 29.7 pg (28.0-33.3); Mean Corpuscular Volume 94.7 fL (83.0-100.0); Mean Platelet Volume 10.5 fL (9.4-12.4); Monocytes # 0.5 K/mcL (0.0-1.3); Monocytes % 10.3 %; Neutrophils # 3.3 K/mcL (1.6-8.9); Platelet Count 119 K/mcL (140-400); Red Cell Distribution Width 14.6 % (11.5-14.5); Segmented Neutrophils % 62.8 %; White Blood Count 5.3 K/mcL (4.3-11.1)
[2022-03-23 06:03] LABS: Calcium 9.4 mg/dL (8.6-10.3); Magnesium 1.7 mg/dL (1.6-2.6); Phosphorous 3.5 mg/dL (2.7-4.5); Potassium 4.1 mEq/L (3.5-5.1)
[2022-03-23] MEDS: Budesonide/Formoterol 80/4.5 1 PUFF INH IH SCH ×2 (07:25→22:19)
[2022-03-23] MEDS: Insulin LISPRO 300 UNITS/3 ML VIAL SUBQ SCH ×4 (07:30→21:20)
[2022-03-23] MEDS: Loratadine 10 MG TABLET PO SCH (07:37)
[2022-03-23] MEDS: Aspirin Enteric Coated 81 MG Tablet PO SCH (07:37)
[2022-03-23] MEDS: Furosemide 40 MG TABLET PO SCH ×2 (07:37→21:18)
[2022-03-23] MEDS: DilTIAZem CD (24hr) 120 MG CAP.ER.24H PO SCH (07:38)
[2022-03-23] MEDS: Metoprolol XL (24 HR) Succ 25 MG TAB.ER.24H PO SCH (07:38)
[2022-03-23] MEDS: Famotidine 20 MG TABLET PO SCH (07:38)
[2022-03-23] MEDS ORDERED: metOLazone 2.5 MG TABLET PO SCH (13:30)
[2022-03-23] MEDS: Heparin 25,000UNIT/250ML 1/2NS 25,000 UNIT/250 ML IV.SOLN IVC SCH (20:51)
[2022-03-24 03:26] LABS: Basophils % 0.4 %; Eosinophils # 0.2 K/mcL (0.0-0.6); Eosinophils % 3.9 %; Hematocrit 31.1 % (35.3-44.9); Hemoglobin 9.6 g/dL (11.5-15.4); Immature Granulocytes % 0.2 % (0-4); Lymphocytes # 1.4 K/mcL (0.6-4.6); Lymphocytes % 27.4 %; Mean Corpuscular HGB Conc 30.9 g/dL (31.6-35.5); Mean Corpuscular Hemoglobin 29.2 pg (28.0-33.3); Mean Corpuscular Volume 94.5 fL (83.0-100.0); Mean Platelet Volume 10.7 fL (9.4-12.4); Monocytes # 0.5 K/mcL (0.0-1.3); Monocytes % 10.3 %; Platelet Count 121 K/mcL (140-400); Red Blood Count 3.29 M/mcL (3.82-4.97); Red Cell Distribution Width 14.4 % (11.5-14.5); Segmented Neutrophils % 57.8 %; White Blood Count 5.2 K/mcL (4.3-11.1)
[2022-03-24 03:48] LABS: Calcium 9.1 mg/dL (8.6-10.3); Magnesium 1.5 mg/dL (1.6-2.6); Phosphorous 3.7 mg/dL (2.7-4.5); Potassium 4.2 mEq/L (3.5-5.1)
[2022-03-24] MEDS: Budesonide/Formoterol 80/4.5 1 PUFF INH IH SCH (07:36)
[2022-03-24] MEDS: Insulin LISPRO 300 UNITS/3 ML VIAL SUBQ SCH ×2 (08:39→12:03)
[2022-03-24] MEDS: DilTIAZem CD (24hr) 120 MG CAP.ER.24H PO SCH (08:41)
[2022-03-24] MEDS: Aspirin Enteric Coated 81 MG Tablet PO SCH (08:41)
[2022-03-24] MEDS: Loratadine 10 MG TABLET PO SCH (08:41)
[2022-03-24] MEDS: Furosemide 40 MG TABLET PO SCH (08:41)
[2022-03-24] MEDS: Famotidine 20 MG TABLET PO SCH (08:42)
[2022-03-24] MEDS: Metoprolol XL (24 HR) Succ 25 MG TAB.ER.24H PO SCH (08:42)
[2022-03-24] MEDS ORDERED: Apixaban 5 MG TABLET PO SCH (10:00)
[2022-03-24 11:20] VITALS: BP 140/72; PULSE 81; TEMP 98.2; O2SAT 93
== END 2022-03-24 16:05 | disposition home or self-care (01) | DRG 291 ==
LOC: EMEROOARM 12:45 → 3ANU 12:45 → SUATTDRO 16:13 → 3ANU 17:55
PROVIDERS: ADMIT Internal Medicine; ATTEND Family Medicine